=== PATIENT | female | born 2000 | race Hispanic/Latino ===

== ENCOUNTER 2023-01-09 17:12 | Inpatient (IN) | payer BC ==
[~2023-01-09 17:12] MED LIST: Iopamidol-370 76% 500 ML MDV (1 ML CHARGE) ONE
[2023-01-09] MEDS ORDERED: Magnesium 2 GM/50 ML BAG (IN WATER) ONE (18:12)
[2023-01-09 18:14] LABS: Base Excess -21.5 mEq/L (-2.0 to +3.0); Chloride (VBG) 112 mmol/L (98-106); Hematocrit-VBG 36 % (36.0-47.0); Hemoglobin (Hb) 12.3 g/dL (11.7-15.5); Potassium (VBG) 3.75 mmol/L (3.70-5.30); Sodium 134.4 mmol/L (133-146)
[2023-01-09 18:15] LABS: pH (venous) 7.108 (7.32-7.43)
[2023-01-09 18:15] LABS: Bacteria/HPF 2+ HPF (None Seen); Bilirubin Negative (Negative); Blood, Urine 3+ (Negative); CAUTI Indications for Culture Dysuria,urgency,freq; Clarity Turbid (Clear); Glucose, Urine (Dipstick) Greater than 1000 mg/dL (Negative); Ketone, Urine Greater than 150 mg/dL (Negative); Leukocyte 250 Leu/uL (Negative); Nitrite Negative (Negative); Protein, Urine (Dipstick) 30 mg/dL (Neg-Trace); RBC/HPF 0-3 HPF (0-3); Specific Gravity, Urine 1.017 (1.002-1.036); Squamous Epithelial 0-3 HPF (0-3); Urobilinogen Normal mg/dL (Less than 2); pH, Urine 5.5 (5.0-9.0)
[2023-01-09 18:16] LABS: Actual Bicarbonate (HCO3v) 6.2 mEq/L (22-28)
[2023-01-09 18:20] LABS: Hemoglobin 11.5 g/dL (12.0-16.0); Mean Corpuscular HGB CONC 31.9 g/dL (32.0-36.0); Mean Corpuscular Hemoglobin 26.8 pg (27.0-31.0); Mean Corpuscular Volume 83.9 fl (78.0-98.0); Mean Platelet Volume 8.3 fL (7.4-10.4); Platelet Count 305 10x3/uL (130-400); RBC Distribution Width 14.5 % (11.5-14.5); Red Blood Cell (RBC) Count 4.29 mill/uL (4.20-5.40); White Blood Cell (WBC) Count 16.3 10x3/uL (4.8-10.8)
[2023-01-09 18:30] LABS: Delete Auto Diff?? YES; Manual Diff?? YES
[2023-01-09 18:33] LABS: BHCG - Serum Negative (NEGATIVE); Pregs Control Background? CLEAR/WHITE (CLR/WHITE); Pregs Control Bar Appear? YES (CONTROL BAR)
[2023-01-09 18:41] LABS: Phosphorus 1.7 mg/dL (2.3-4.7)
[2023-01-09] MEDS ORDERED: INSULIN REGULAR IN 0.9 % NACL 100 UNITS/100 ML BAG ONE (18:45)
[2023-01-09 18:46] LABS: ALT (SGPT) Less than 7 U/L (8-55); AST (SGOT) 5 U/L (5-34); Albumin 3.1 g/dL (3.5-5.0); Alkaline Phosphatase 153 U/L (40-110); BUN (Urea Nitrogen) 5 mg/dL (7.0-18.7); Bilirubin, Total 0.3 mg/dL (0.2-1.2); Calc. Creatinine Clearance 0 mL/min (70-130); Calcium 8.9 mg/dL (7.8-10.44); Chloride 114 mmol/L (98-107); Estimated GFR 112; Glucose 348 mg/dL (70-105); Magnesium 1.9 mg/dL (1.6-2.6); Potassium 3.6 mmol/L (3.5-5.1); Protein, Total 7.1 g/dL (6.0-8.3); Sodium 132 mmol/L (136-145)
[2023-01-09 18:51] LABS: Band 30 % (5-11); Burr Cells SLIGHT = 2-5 cells HPF (0-1); Carbon Dioxide Less than 8 mmol/L (22-29); CellaVision Operator ID LAB.KB; Lymphocytes 4 % (21-51); Monocytes 9 % (0-10); Neutrophil 56 % (42-75); Platelet Adequacy Comment Platelets Normal; Polychromasia SLIGHT = 2-3 cells HPF (0-2); Reactive Lymphocytes 1 % (0-10); Total Cell Count 100
[2023-01-09] MEDS ORDERED: Potassium Chloride 20 MEQ/100 ML PREMIX BAG ONE (19:39)
[2023-01-09] MEDS ORDERED: NS 0.9% w/ 20 MEQ KCL 1,000 ML ONE (19:40)
[2023-01-09] MEDS ORDERED: Sodium Chloride 0.9% 1,000 ML IV PRN ×3 (19:52)
[2023-01-09] MEDS ORDERED: Ondansetron ODT 4 MG TAB PO PRN (19:52)
[2023-01-09] MEDS ORDERED: NS 0.9% w/ 20 MEQ KCL 1,000 ML IV PRN ×2 (19:52)
[2023-01-09] MEDS ORDERED: Electrolyte Replacement Protocol 1 EACH IVPB PRN (19:52)
[2023-01-09] MEDS ORDERED: Dextrose 50% Abboject 50 ML SYRINGE SLOW IVP PRN (19:52)
[2023-01-09] MEDS ORDERED: Ondansetron PF 4 MG/2 ML Vial IVP PRN (19:52)
[2023-01-09] MEDS ORDERED: Acetaminophen 650 MG Suppository PR PRN (19:52)
[2023-01-09] MEDS ORDERED: Dextrose 5 %-0.45 % NaCl 1,000 ML IV PRN (19:52)
[2023-01-09] MEDS ORDERED: HUMULIN R 100 UNITS in Sodium Chloride 0.9% 100 ML IVPB SCH (20:00)
[2023-01-09] MEDS ORDERED: cefTRIAXone\\ROCEPHIN 1 GM in Sodium Chloride 0.9% 100 ML IVPB SCH (21:00)
[2023-01-09] MEDS: D5 1/2 NS w/20 mEq KCL 1,000 ML IV PRN (22:07)
[2023-01-09 22:55] LABS: Anion Gap 13 mmol/L (10-20); BUN (Urea Nitrogen) 4 mg/dL (7.0-18.7); Calc. Creatinine Clearance 0 mL/min (70-130); Chloride 117 mmol/L (98-107); Estimated GFR 126; Glucose 220 mg/dL (70-105); Potassium 3.2 mmol/L (3.5-5.1); Sodium 135 mmol/L (136-145)
[2023-01-09 23:01] LABS: Carbon Dioxide 8 mmol/L (22-29)
[2023-01-09] MEDS ORDERED: Piperacillin/Tazobactam 3.375 GM in Sodium Chloride 0.9% 100 ML IVPB SCH ×2 (23:30→23:45)
[2023-01-09 23:57] VITALS: BMI 29.2
[2023-01-10] MEDS: Potassium Phosphate 15 MMOL in Sodium Chloride 0.9% 100 ML IVPB SCH (00:31)
[2023-01-10] MEDS: D5 1/2 NS w/20 mEq KCL 1,000 ML IV PRN ×2 (01:16→11:29)
[2023-01-10 01:51] LABS: #Basophils 0.1 thou/uL (0.0-0.2); #Monocytes 1.1 thou/uL (0.11-0.59); #Neutrophils 10.8 thou/uL (1.40-6.50); %Basophils 0.4 % (0.0-1.0); %Eosinophils 0.3 % (0.0-10.0); %Lymphocytes 8.2 % (21.0-51.0); %Monocytes 8.3 % (0.0-10.0); Hemoglobin 10.2 g/dL (12.0-16.0); Mean Corpuscular HGB CONC 32.4 g/dL (32.0-36.0); Mean Corpuscular Hemoglobin 26.9 pg (27.0-31.0); Mean Corpuscular Volume 83.1 fl (78.0-98.0); Mean Platelet Volume 8.4 fL (7.4-10.4); Platelet Count 286 10x3/uL (130-400); RBC Distribution Width 14.5 % (11.5-14.5); Red Blood Cell (RBC) Count 3.79 mill/uL (4.20-5.40); White Blood Cell (WBC) Count 13.4 10x3/uL (4.8-10.8)
[2023-01-10 02:12] LABS: Anion Gap 11 mmol/L (10-20); BUN (Urea Nitrogen) Less than 4 mg/dL (7.0-18.7); Calc. Creatinine Clearance 162 mL/min (70-130); Calcium 8.6 mg/dL (7.8-10.44); Carbon Dioxide 10 mmol/L (22-29); Chloride 115 mmol/L (98-107); Estimated GFR 129; Glucose 253 mg/dL (70-105); Potassium 3.1 mmol/L (3.5-5.1); Sodium 133 mmol/L (136-145)
[2023-01-10 02:20] LABS: Anion Gap 12 mmol/L (10-20); BUN (Urea Nitrogen) Less than 4 mg/dL (7.0-18.7); Calc. Creatinine Clearance 164 mL/min (70-130); Calcium 8.6 mg/dL (7.8-10.44); Chloride 114 mmol/L (98-107); Estimated GFR 130; Glucose 253 mg/dL (70-105); Potassium 3.1 mmol/L (3.5-5.1); Sodium 132 mmol/L (136-145)
[2023-01-10 02:23] LABS: Carbon Dioxide 9 mmol/L (22-29)
[2023-01-10] MEDS: Piperacillin/Tazobactam 3.375 GM in Sodium Chloride 0.9% 100 ML IVPB SCH ×3 (05:13→20:39)
[2023-01-10] MEDS: Potassium Chloride 20 MEQ in Premix Bag 1 BAG IVPB SCH ×4 (06:09→17:39)
[2023-01-10] MEDS: Famotidine/PF 20 mg/2ml Vial SLOW IVP SCH ×2 (08:33→20:39)
[2023-01-10 10:16] LABS: Anion Gap 11 mmol/L (10-20); BUN (Urea Nitrogen) Less than 4 mg/dL (7.0-18.7); Calc. Creatinine Clearance 163 mL/min (70-130); Calcium 8.6 mg/dL (7.8-10.44); Carbon Dioxide 12 mmol/L (22-29); Chloride 112 mmol/L (98-107); Estimated GFR 129; Glucose 287 mg/dL (70-105); Potassium 2.9 mmol/L (3.5-5.1); Sodium 132 mmol/L (136-145)
[2023-01-10] MEDS ORDERED: Insulin Glargine 30 UNITS/0.3 ML VIAL SC SCH (12:00)
[2023-01-10] MEDS ORDERED: Potassium Chloride 20 MEQ TAB PO SCH (12:00)
[2023-01-10 12:15] LABS: Hemoglobin A1c Greater than 14.0 % (4.0-6.0)
[2023-01-10 13:14] LABS: Anion Gap 10 mmol/L (10-20); BUN (Urea Nitrogen) Less than 4 mg/dL (7.0-18.7); Calc. Creatinine Clearance 160 mL/min (70-130); Calcium 8.3 mg/dL (7.8-10.44); Carbon Dioxide 13 mmol/L (22-29); Chloride 113 mmol/L (98-107); Estimated GFR 129; Glucose 227 mg/dL (70-105); Potassium 3.2 mmol/L (3.5-5.1); Sodium 133 mmol/L (136-145)
[2023-01-10] MEDS ORDERED: Glucagon 1 MG/ML KIT IM PRN (13:39)
[2023-01-10] MEDS ORDERED: Dextrose 5% in Water 1,000 ML IV PRN (13:39)
[2023-01-10] MEDS ORDERED: Dextrose 50% Abboject 50 ML SYRINGE SLOW IVP PRN (13:39)
[2023-01-10] MEDS: HumaLOG 300 UNITS/3 ML VIAL SC PRN ×2 (17:40→20:38)
[2023-01-10] MEDS: Acetaminophen 325 MG TAB PO PRN (22:34)
[2023-01-11] MEDS: Piperacillin/Tazobactam 3.375 GM in Sodium Chloride 0.9% 100 ML IVPB SCH ×3 (03:24→20:54)
[2023-01-11] MEDS: HumaLOG 300 UNITS/3 ML VIAL SC PRN ×4 (06:41→21:00)
[2023-01-11 06:50] LABS: Hemoglobin 10.1 g/dL (12.0-16.0); Mean Corpuscular HGB CONC 33.4 g/dL (32.0-36.0); Mean Corpuscular Hemoglobin 26.6 pg (27.0-31.0); Mean Corpuscular Volume 79.7 fl (78.0-98.0); Mean Platelet Volume 8.2 fL (7.4-10.4); Platelet Count 311 10x3/uL (130-400); RBC Distribution Width 14.5 % (11.5-14.5); Red Blood Cell (RBC) Count 3.79 mill/uL (4.20-5.40); White Blood Cell (WBC) Count 11.4 10x3/uL (4.8-10.8)
[2023-01-11 07:15] LABS: Anion Gap 14 mmol/L (10-20); BUN (Urea Nitrogen) 7 mg/dL (7.0-18.7); Calc. Creatinine Clearance 144 mL/min (70-130); Calcium 8.8 mg/dL (7.8-10.44); Carbon Dioxide 15 mmol/L (22-29); Chloride 107 mmol/L (98-107); Estimated GFR 127; Glucose 362 mg/dL (70-105); Potassium 3.3 mmol/L (3.5-5.1); Sodium 133 mmol/L (136-145)
[2023-01-11] MEDS: Famotidine/PF 20 mg/2ml Vial SLOW IVP SCH ×2 (08:59→20:54)
[2023-01-11] MEDS ORDERED: Potassium Chloride 20 MEQ TAB PO SCH (09:00)
[2023-01-11] MEDS ORDERED: Insulin Glargine 30 UNITS/0.3 ML VIAL SC SCH (09:00)
[2023-01-11] MEDS: Acetaminophen 325 MG TAB PO PRN (16:14)
[2023-01-11] MEDS: Insulin Glargine 30 UNITS/0.3 ML VIAL SC SCH (21:00)
[2023-01-12] MEDS: HumaLOG 300 UNITS/3 ML VIAL SC PRN ×5 (00:10→16:52)
[2023-01-12] MEDS: Acetaminophen 325 MG TAB PO PRN (02:01)
[2023-01-12] MEDS: Piperacillin/Tazobactam 3.375 GM in Sodium Chloride 0.9% 100 ML IVPB SCH ×3 (04:17→22:21)
[2023-01-12 06:11] LABS: Anion Gap 14 mmol/L (10-20); BUN (Urea Nitrogen) 6 mg/dL (7.0-18.7); Calc. Creatinine Clearance 181 mL/min (70-130); Calcium 8.6 mg/dL (7.8-10.44); Carbon Dioxide 20 mmol/L (22-29); Chloride 106 mmol/L (98-107); Estimated GFR 134; Glucose 168 mg/dL (70-105); Sodium 137 mmol/L (136-145)
[2023-01-12 06:18] LABS: Potassium 2.6 mmol/L (3.5-5.1)
[2023-01-12 06:52] LABS: Magnesium 2.1 mg/dL (1.6-2.6)
[2023-01-12] MEDS: Famotidine/PF 20 mg/2ml Vial SLOW IVP SCH ×2 (08:40→22:21)
[2023-01-12] MEDS: Potassium Chloride 20 MEQ TAB PO SCH ×2 (08:40→11:45)
[2023-01-12] MEDS: Insulin Glargine 30 UNITS/0.3 ML VIAL SC SCH ×2 (08:40→22:28)
[2023-01-12] MEDS ORDERED: Potassium Bicarbonate/Cit Ac 20 MEQ TAB PO SCH (13:00)
[2023-01-12 15:47] LABS: Anion Gap 13 mmol/L (10-20); Carbon Dioxide 24 mmol/L (22-29); Chloride 101 mmol/L (98-107); Potassium 4.1 mmol/L (3.5-5.1); Sodium 134 mmol/L (136-145)
[2023-01-13] MEDS: Piperacillin/Tazobactam 3.375 GM in Sodium Chloride 0.9% 100 ML IVPB SCH (05:22)
[2023-01-13] MEDS: HumaLOG 300 UNITS/3 ML VIAL SC PRN ×2 (06:21→12:36)
[2023-01-13 06:38] LABS: Anion Gap 13 mmol/L (10-20); BUN (Urea Nitrogen) 5 mg/dL (7.0-18.7); Calc. Creatinine Clearance 153 mL/min (70-130); Calcium 8.3 mg/dL (7.8-10.44); Carbon Dioxide 24 mmol/L (22-29); Chloride 102 mmol/L (98-107); Estimated GFR 129; Glucose 384 mg/dL (70-105); Potassium 3.6 mmol/L (3.5-5.1); Sodium 135 mmol/L (136-145)
[2023-01-13 08:24] VITALS: BP 100/70; TEMP 98.3
[2023-01-13] MEDS: Insulin Glargine 30 UNITS/0.3 ML VIAL SC SCH (08:32)
[2023-01-13] MEDS: Famotidine/PF 20 mg/2ml Vial SLOW IVP SCH (08:33)
== END 2023-01-13 13:50 | disposition home or self-care (01) | DRG 637 ==
LOC: ERS 17:12 → IMCU/EMU 18:35 → SURG A 01-11 12:44
PROVIDERS: ADMIT Internal Medicine; ATTEND Internal Medicine
DX: E11.10 Type 2 diabetes mellitus with ketoacidosis without coma (principal); N15.1 Renal and perinephric abscess; N10 Acute pyelonephritis; N39.0 Urinary tract infection, site not specified; E27.8 Other specified disorders of adrenal gland; E87.6 Hypokalemia; R31.9 Hematuria, unspecified; N28.1 Cyst of kidney, acquired; F17.290 Nicotine dependence, other tobacco product, uncomplicated; Z79.84 Long term (current) use of oral hypoglycemic drugs; Z71.6 Tobacco abuse counseling; Z79.899 Other long term (current) drug therapy; Z79.4 Long term (current) use of insulin
CPT/HCPCS: 36415; 36416; 74177; 80048; 82010; 82805; 83036; 83735; 84100; 84145; 84703; 85025; 85027; 87040; 87077; 87086; 93005; 96365; 96367; 96368; J0696; J1815; J2543; J3475; J3480; J3490; Q9967; S0028